=== PATIENT | female | born 1990 | race Caucasian/White ===

== ENCOUNTER 2017-06-28 17:03 | Emergency (ER) | payer OTHER ==
[2017-06-28] MEDS ORDERED: Ondansetron INJ* 2 MG/ML VIAL IV ONE (18:43)
[2017-06-28] MEDS ORDERED: Morphine INJ* 2 MG/ML 1 ML CARPUJECT IV ONE (18:43)
[2017-06-28] MEDS ORDERED: Morphine INJ* 4 MG/ML 1 ML SYRINGE (NEW SYRINGE VERSION) IV ONE (18:48)
--- NOTE | 2017-06-28 18:59 | ED ---
- HPI Summary HPI Summary: Patient here with miscarriage. She reports she had taken a home test after missing her period and this was positive. She followed up with OB/ [facility] who confirmed with an hCG serum study on MondayJune 19. She had a repeat hCG study on June 22 which revealed a declining quantitative value. She also had an ultrasound that revealed it was too early to identify is intrauterine or ectopic but she was told after a declining hCG on June 22 she was most likely miscarrying. She denies any pain or vaginal discharge until yesterday when she developed some mild cramping and spotting. She is here today she is having severe cramping (both pelvic and back), contractions and heavy bleeding with clots. She also reports subjective fevers and chills. She reports her pain is 8 out of 10 at rest and feels like someone is stabbing her with a knife and repairing it through her pelvic region. Pain is 10 out of 10 when contractions,. Contractions have been further apart since arriving to the ED. She reports she had been using oral control prior to and although she and her partner were not trying, she missed a few doses of her control rendering her area she denies any previous issues with menstruation or bleeding/clotting disorders in herself or her family. She does report her mom miscarried her first as well. 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 - Allergies/Home Medications Allergies/Adverse Reactions: Allergies Allergy/AdvReac Type Severity Reaction Status Date / Time dog food dust, body wash Allergy Swelling Uncoded 01/30/16 14:48 Home Medications: Home Medications NK [No Home Medications Reported] 06/28/17 [History Confirmed 06/28/17] PMH/Surg Hx/FS Hx/Imm Hx Previously Healthy: Yes Endocrine/Hematology History: Denies: Hx Anticoagulant Therapy, Hx Blood Disorders, Hx Thyroid Disease, Hx Anemia, Hx Unexplained Bleeding, Hx Coagulopothy, Autoimmune Disease Respiratory History: Reports: Hx Asthma - Surgical History Surgery Procedure, Year, and Place: Tonsils Infectious Disease History: No Infectious Disease History: Denies: Traveled Outside the [place] in Last 30 Days - Family History Known Family History: Positive: Other - CA, cholescystectomy - Social History Occupation: Employed Full-time - [employer] Lives: With Family Alcohol Use: Occasionally - NOT DURING Hx Substance Use: No Substance Use Type: Reports: None Hx Tobacco Use: No - NOT CURRENTLY Smoking Status (MU): Former Smoker Review of Systems Positive: Fever, Chills. Negative: Fatigue Cardiovascular: Negative Respiratory: Negative Positive: Abdominal Pain. Negative: Vomiting, Diarrhea, Nausea Positive: see HPI Musculoskeletal: Negative Skin: Negative Neurological: Negative Positive: Anxious All Other Systems Reviewed And Are Negative: Yes Physical Exam - Physical Exam Triage Information Reviewed: Yes Vital Signs Reviewed: Yes Appearance: Positive: Well-Appearing, Well-Nourished, Pain Distress - MILD TO MODERATE Skin: Positive: Warm, Skin Color Reflects Adequate Perfusion, Dry Head/Face: Positive: Normal Head/Face Inspection Eyes: Positive: Normal, EOMI ENT: Positive: Hearing grossly normal, Pharynx normal - Mucosa moist Neck: Positive: Supple Respiratory/Lung Sounds: Positive: Breath Sounds Present Cardiovascular: Positive: Normal, RRR, S1, S2. Negative: Murmur, Rub Abdomen Description: Positive: No Organomegaly, Soft, Other: - generalized TTP over mid and lower ab - no rebounding Bowel Sounds: Positive: Present Musculoskeletal: Positive: Normal, Strength/ROM Intact Neurological: Positive: Normal, Sensory/Motor Intact, Alert, Oriented to Person Place, Time, CN Intact II-III Psychiatric: Positive: Normal Diagnostics - Vital Signs Vital Signs Temp Pulse Resp BP Pulse Ox 06/28/17 17:06 98.1 F 75 18 122/68 100 - Laboratory Result Diagrams: 06/28/17 19:00 06/28/17 19:00 Lab Statement: Any lab studies that have been ordered have been reviewed, and results considered in the medical decision making process. Course/Dx - Course Course Of Treatment: 8 week Patient presents with 2 day history of first pelvic cramping with spotting and today contractions with heavy bleeding, passing clots. She was seen earlier this week by [facility] who reported her hCG levels have been dropping. She also had an initial U/S which did not reveal ectopic but was too early to tell at that time. Repeat labs today indicate her hCG continues to drop and ultrasound is negative for ectopic at this time, report suggests failed IUP. Her temperature is within normal limits and she does not exhibit signs of septicemia - has not taken any meds prior to arrival. Her pain is well controlled here with IV morphine. Will discharge with further pain control and danger signs and symptoms of when to return the emergency Department - otherwise she'll follow- up with [facility]. - Diagnoses Provider Diagnoses: Miscarriage - Provider Notifications Discussed Care Of Patient With: Cale Yen Discharge - Sign-Out/Discharge Documenting (check all that apply): Discharge - Discharge Plan Condition: Stable Disposition: HOME Patient Education Materials: Miscarriage (ED) Forms: *Work Release Referrals: Shawna Louie NP [Primary Care Provider] - Additional Instructions: You appear to be having a miscarriage. It is advised that you rest, stay hydrated/nourished and implement pelvic rest which entails no tampons or sexual intercourse until cleared by [facility]. You may take Tylenol 650 mg every 6 hours as needed for pain however if your pain is not well controlled with Tylenol alone, you may alternate with Dolores -a pain medication with hydrocodone, and narcotic pain med, and Tylenol. Do not exceed 4 g of Tylenol in a 24-hour period. Avoid NSAIDs such as ibuprofen and naproxen. Follow-up with OBGYN in the next 1-2 days to update symptoms. If you develop fever or heavy vaginal bleeding, return to ED. NOTE: It is encouraged that you follow-up with OBGYN or PCP for grief counseling. Call tomorrow to schedule appointment. - Billing Disposition and Condition Condition: STABLE Disposition: HOME
[2017-06-28 19:14] LABS: ABS Basophils 0 10^3/ul (0-0.2); ABS Eosinophils 0 10^3/ul (0-0.6); ABS Lymphocytes 1.4 10^3/ul (1.0-4.8); ABS Monocytes 0.4 10^3/ul (0-0.8); ABS Neutrophils 12.8 10^3/ul (1.5-7.7); ABS Nucleated RBC 0 10^3/ul; Eosinophil % 0.3 % (0-6); Hematocrit 34 % (35-47); Hemoglobin 11.5 g/dl (12.0-16.0); Lymphocyte % 9.5 % (25-47); Mean Corpuscular HGB Conc 33 g/dl (31-36); Mean Corpuscular Hemoglobin 27 pg (27-31); Mean Corpuscular Volume 82 fL (80-97); Mean Platelet Volume 8.4 um3 (7.4-10.4); Nucleated Red Blood Cells % 0; Platelet Count 205 10^3/ul (150-450); Red Blood Count 4.19 10^6/ul (4.0-5.4); Red Cell Distribution Width 13 % (10.5-15); White Blood Count 14.7 10^3/ul (3.5-10.8)
[2017-06-28] MEDS ORDERED: Morphine INJ* 2 MG/ML 1 ML CARPUJECT ONE (19:18)
[2017-06-28 19:23] LABS: INR 0.93 (0.77-1.02)
[2017-06-28 19:36] LABS: EGFR Non-African American 110.2 (>60)
--- NOTE | 2017-06-28 20:02 | RAD ---
Indication: Approximate 8 weeks . Vaginal bleeding. Differential includes failed first trimester and ectopic . Comparison: No relevant prior exams available on the [facility] PACS for comparison. Technique: Transvaginal pelvic ultrasound. Report: 10.6 x 3.7 x 5.4 cm anteverted uterus. The uterus and cervix appear heterogeneous in echotexture. Mildly complex fluid within the endocervical canal. No intrauterine gestational sac visualized. Unremarkable 3.2 x 2.0 x 1.8 cm RIGHT ovary and 2.6 x 1.8 x 1.2 cm LEFT ovary with documented vascular flow and small follicles only. No suspicious ovarian or visualized extra ovarian adnexal region lesions evident. Only trace free pelvic fluid visualized. IMPRESSION: No suspicious adnexal region lesions or definitive IUP visualized. Given presence of complex fluid at the endocervical canal an in process failed intrauterine is most likely. As ectopic is not entirely excluded in absence of a visualized IUP close clinical, beta-HCG, and sonographic follow-up is suggested as deemed appropriate.
[2017-06-28] MEDS ORDERED: Acetaminophen TAB* 325 MG PO ONE (21:02)
[2017-06-28 21:07] VITALS: BP 102/66
[2017-06-28 21:22] LABS: Urine Appearance Clear; Urine Color Yellow; Urine Ketones Trace (Negative); Urine Protein Negative (Negative); Urine Specific Gravity 1.004 (1.010-1.030); Urine Urobilinogen Negative (Negative)
[2017-06-28 21:23] LABS: Urine Blood 3+ (Negative)
== END 2017-06-28 21:24 | disposition home or self-care (01) ==
LOC: ED 17:03
DX: O03.9 Complete or unspecified spontaneous abortion without complication (principal); R50.9 Fever, unspecified; J45.909 Unspecified asthma, uncomplicated; Z87.891 Personal history of nicotine dependence
CPT/HCPCS: 36415; 76801; 80053; 81003; 81015; 84702; 85025; 85610; 85730; 87086; 96374; 96375; 99283; A9270-GY; J2270; J2405

== ENCOUNTER 2019-06-07 12:03 | Emergency (ER) | payer OTHER ==
--- OUTSIDE RECORDS SUMMARY | 2019-06-07 12:13 | XMS REPORT | Continuity of Care Document ---
:1990 External Reference #:[id number] Author Name Shawna Louie N.P. 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 Onset: 05/23/2012 Social History Type Date Description Comments Sex Unknown ETOH Use Currently consumes Rare alcohol Tobacco Use Start: Unknown End: Patient is a former Unknown smoker Smoking Status Reviewed: 05/24/19 Patient is a former smoker Exercise Exercises regularly Exercises every other Type/Frequency day at [email or web address] Allergies, Adverse Reactions, Alerts Description No Known Drug Allergies Medications Active Medications SIG Qnty Indications Ordering Provider Date Omeprazole 1 by mouth every 30caps R10.84 Shawna Louie, 05/24/[address] Leonzolam take1 tablet 10tabs Semaj Carlisle NP 03/17/2017 0.5mg twice daily as Tablets needed, 1 hour before flying or for panic Peak Flow Meter check peak flow 1units 493.90 Rima Brown M.D. 06/12/2013 once weekly and Device as needed for symptom control Proair HFA inhale 1 to 2 8.5units 493.90 Shawna Louie, 05/23/2012 puffs every four N.P. 108(90Base) mcg/Act hours if needed Aerosol Medications Administered in Office Medication SIG Qnty Indications Ordering Provider Date PPD Injection Semaj Carlisle NP 07/02/2014 Immunizations CPT Code Status Date Vaccine Lot # [id number] Given 08/24/2015 Tetanus And Diptheria (Td) For Adult Use [id number] Preservative Free Vital Signs Date Vital Result Comment 05/24/2019 10:01am Height 65.25 inches 5'5.25" Weight 187.50 lb Heart Rate 75 /min BP Systolic Sitting 113 mmHg BP Diastolic Sitting 77 mmHg Body Temperature 97.7 F O2 % BldC Oximetry 99 % BMI (Body Mass Index) 31.0 kg/m2 02/20/2018 8:39am Height 65.25 inches 5'5.25" Weight 187.44 lb Heart Rate 88 /min BP Systolic 100 mmHg BP Diastolic 64 mmHg Body Temperature 98.4 F O2 % BldC Oximetry 98 % BMI (Body Mass Index) 30.9 kg/m2 Results Description No Information Available Procedures Description No Information Available Medical Devices Description No Information Available Encounters Type Date Location Provider Dx Diagnosis Office Visit 05/24/2019 [facility] Internal Shawna Louie, G43.909 Migraine, unsp , not 10:00a Medicine - [facility] N.P. intractable, without status migrainosus R10.84 Generalized abdominal pain Assessments Date Code Description Provider 05/24/2019 G43.909 Migraine, unspecified, not intractable, Shawna Louie, N.P. without status migrainosus 05/24/2019 R10.84 Generalized abdominal pain Shawna Louie N.P. Plan of Treatment Future Appointment(s):06/27/2019 9:40 am - Shawna Louie NEladio at [facility] Internal Medicine - [facility]05/24/2019 - Shawna Louie N.PMaríaG43.909 Migraine, unspecified, not intractable, without status migrainosusComments:For your migraine headaches : I advise you to start taking Magnesium 400 mg daily. For the nausea I prescribed Ondansetron 4 mg. You may take this as needed.Follow up:F/U 1 [id number] Generalized abdominal painNew Medication:Omeprazole 20 mg - 1 by mouth every dayComments:Your nausea and abdominal pain may be related to gastritis, an inflammation of your stomach. I have prescribed Omeprazole 20 mg. Take 1 tablet daily. Avoid spicy, greasy, and acidic foods. Coffee and alcohol are also irritants.I have ordered an abdominal ultrasound. The office will contact you with your results. Functional Status Description No Information Available Mental Status Description No Information Available Referrals Description No Information Available
--- OUTSIDE RECORDS SUMMARY | 2019-06-07 12:13 | XMS REPORT | Continuity of Care Document ---
:1990 External Reference #:[id number] Author Name Shawna Louie N.P. 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 Onset: 05/23/2012 Social History Type Date Description Comments Sex Unknown ETOH Use Currently consumes Rare alcohol Tobacco Use Start: Unknown End: Patient is a former Unknown smoker Smoking Status Reviewed: 05/24/19 Patient is a former smoker Exercise Exercises regularly Exercises every other Type/Frequency day at [employer] Allergies, Adverse Reactions, Alerts Description No Known Drug Allergies Medications Active Medications SIG Qnty Indications Ordering Provider Date Omeprazole 1 by mouth every 30caps R10.84 Shawna Louie, 05/24/2019 [address]P. Capsules DR Alarcon take1 tablet 10tabs Semaj Carlisle NP 03/17/2017 [...] CPT Code Status Date Vaccine Lot # [id number] Given 08/24/2015 Tetanus And Diptheria (Td) For [...] Medical Devices Description No Information Available Encounters Description No Information Available Assessments Date Code Description Provider 05/24/2019 G43.909 Migraine, unspecified, not intractable, Shawna Louie, N.P. without status migrainosus 05/24/2019 R10.84 Generalized abdominal pain Shawna Louie, N.PMaría Plan of Treatment 05/24/2019 - Shawna Louie, N.P.G43.909 Migraine, unspecified, not intractable, without status migrainosusComments:For your migraine headaches: I advise you to start taking Magnesium 400 mg daily. For the nausea I prescribed Ondansetron 4 mg. You may take this as needed.Follow up:F/U 1 [id number] Generalized abdominal painNew Medication:Omeprazole 20 mg - 1 by mouth every dayNew Xrays: US Abdomen Complete, Ordered: 05/24/19Comments:Your nausea and abdominal pain may be related [...]
[2019-06-07 12:36] VITALS: BP 124/70
--- NOTE | 2019-06-07 13:48 | UC ---
Skin Complaint HPI - HPI Summary HPI Summary: 28-year-old female presents with complaints of a pruritic rash. States started yesterday to her posterior scalp and then this morning she woke up with the rash to her upper back, abdomen, and bilateral upper legs. Reports started omeprazole one and a half weeks ago. Only other change has been a new brand of water softener. No changes to diet, soaps, detergents, lotions, cosmetics, or known contact with environmental irritants. Denies swelling of the lips, tongue , throat, or difficulty breathing. - History of Current Complaint Chief Complaint: UCGeneralIllness Time Seen by Provider: 06/07/19 13:43 Stated Complaint: ITCHY RASH HIVES EARS ITCH/BURN Hx Obtained From: Patient Hx Last Menstrual Period: end april Pain Intensity: 0 - Allergy/Home Medications Allergies/Adverse Reactions: Allergies Allergy/AdvReac Type Severity Reaction Status Date / Time dog food dust, body wash Allergy Swelling Uncoded 06/07/19 12:36 Home Medications: Home Medications predniSONE 20 mg TAB [Deltasone 20 MG TAB*] 20 mg PO DAILY #3 tab 06/07/19 [Rx] PMH/Surg Hx/FS Hx/Imm Hx Previously Healthy: Yes - Denies significant PMH Other History Of: Negative For: Anticoagulant Therapy - Surgical History Surgical History: Yes Surgery Procedure, Year, and Place: Tonsils - Family History Known Family History: Positive: Other - CA, gall bladder disease - Social History Alcohol Use: Occasionally Substance Use Type: None Smoking Status (MU): Former Smoker Review of Systems All Other Systems Reviewed And Are Negative: Yes Constitutional: Positive: Negative Skin: Positive: Rash Eyes: Negative: Drainage, Eye Redness ENT: Negative: Sore Throat, Ear Ache, Nasal Discharge, Sinus Congestion, Sinus Pain/Tenderness, Other - Swelling of lips, tongue, throat Respiratory: Negative: Shortness Of Breath, Other - Difficulty breathing Cardiovascular: Positive: Negative Gastrointestinal: Positive: Negative Genitourinary: Positive: Negative Motor: Positive: Negative Musculoskeletal: Positive: Negative Neurological/Mental Status: Positive: Negative Is Patient Immunocompromised?: No Physical Exam - Summary Physical Exam Summary: GENERAL APPEARANCE: Well developed, well nourished, alert and cooperative, and appears to be in no acute distress. MOUTH/THROAT: No swelling of the lips, tongue, or throat. Pharynx normal. Tonsils surgically absent. Uvula midline. Oral cavity normal. Airway patent. NECK: Neck supple, non-tender without lymphadenopathy. CARDIAC: Normal S1 and S2. No S3, S4 or murmurs. Rhythm is regular. There is no peripheral edema, cyanosis or pallor. Extremities are warm and well perfused. Capillary refill is less than 2 seconds. Peripheral pulses intact. LUNGS: Clear to auscultation without rales, rhonchi, wheezing or diminished breath sounds. ABDOMEN: Positive bowel sounds. Soft, nondistended, nontender. No guarding or rebound. No masses or hepatosplenomegally. MUSKULOSKELETAL: ROM intact to all extremities. No joint erythema or tenderness. Normal muscular development. Normal gait. SKIN: Skin normal color, texture and turgor. Maculopapular erythematous rash to the posterior scalp, posterior neck, upper back, anterior abdomen, and bilateral anterior lower legs. Triage Information Reviewed: Yes Vital Signs: Initial Vital Signs Temp 98 F 06/07/19 12:34 Pulse 74 06/07/19 12:34 Resp 16 06/07/19 12:34 BP 124/70 06/07/19 12:34 Pulse Ox 100 06/07/19 12:34 Vital Signs Reviewed: Yes Course/Dx - Course Course Of Treatment: 28-year-old female presents with complaints of a pruritic rash. States started yesterday to her posterior scalp and then this morning she woke up with the rash to her upper back, abdomen, and bilateral upper legs. Reports started omeprazole one and a half weeks ago. Only other change has been a new brand of water softener. No changes to diet, soaps, detergents, lotions, cosmetics, or known contact with environmental irritants. Denies swelling of the lips, tongue , throat, or difficulty breathing. Afebrile. Vital signs stable. Patient had no swelling of the lips, tongue, throat, patent airway, no difficulty breathing , clear bilateral breath sounds, a maculopapular erythematous rash to the posterior scalp, posterior neck, upper back, anterior abdomen, and bilateral anterior lower legs, and otherwise unremarkable exam. Discussed with the patient that her symptoms are consistent with a dermatitis of unknown origin although with her starting omeprazole recently razor high degree suspicious that this may be a drug reaction and have instructed the patient to discontinue at this time. We'll start her on prednisone 20 mg PO daily 3 days and have her use an [id number] antihistamine for itching. She is to follow-up with her primary care provider in 3 days if there is no improvement in symptoms. Anticipatory guidance and warning symptoms were reviewed with the patient. Verbalizes understanding and agrees with plan of care. - Differential Diagnoses - Skin Complaint Differential Diagnoses: Allergic Reaction, Anaphylaxis, Contact Dermatitis, Drug Rash, Local Allergic Reaction, Shukla-Harry Syndrome, Urticaria - Diagnoses Provider Diagnosis: Dermatitis Discharge ED - Sign-Out/Discharge Documenting (check all that apply): Patient Departure All imaging exams completed and their final reports reviewed: No Studies - Discharge Plan Condition: Stable Disposition: HOME Prescriptions: predniSONE 20 mg TAB [Deltasone 20 MG TAB*] 20 mg PO DAILY #3 tab Patient Education Materials: Dermatitis (ED) Referrals: Shawna Louie NP [Primary Care Provider] - 3 Days Additional Instructions: Your rash appears to be a dermatitis of unknown origin although I suspect it may be a reaction to the omeprazole which you recently started. Stop taking the omeprazole immediately. Contact her primary care provider and let them know that we are concerned for a possible drug reaction and discuss with them if there is an alternative medication they would like you to start. Take prednisone 20 mg daily for 3 days to help with the rash and itching. Using [id number] nondrowsy antihistamine such as Zyrtec, Aurea, or Claritin twice daily for the itching. You may use the generic forms of these medications. You may also use diphenhydramine (Benadryl) according to directions but be aware that this medication may cause drowsiness and he may want to use this only at night. Follow-up with your primary care provider in 3 days especially if symptoms are not improving. Seek immediate medical attention in the emergency room if you develop swelling of the lips, tongue, throat, difficulty breathing, or any worsening of symptoms. - Billing Disposition and Condition Condition: STABLE Disposition: Home
== END 2019-06-07 16:29 | disposition home or self-care (01) ==
LOC: UCEAST 12:03
DX: L30.9 Dermatitis, unspecified (principal); Z91.048 Other nonmedicinal substance allergy status; Z87.891 Personal history of nicotine dependence
CPT/HCPCS: 84702; 99211; G0463

== ENCOUNTER 2020-02-08 10:53 | Inpatient (IN) ==
[2020-02-08] MEDS ORDERED: Lactated Ringers 1000 ml BAG 1,000 ML IV ONE ×2 (12:31→18:26)
[2020-02-08] MEDS ORDERED: Buffered Lidocaine 1% SYRIN 1 ml INTRADERM ONE (12:31)
[2020-02-08] MEDS ORDERED: Oxytocin in LR 20 UNITS/1,000 ML BAG IVPB SCH (13:00)
[2020-02-08] MEDS ORDERED: Lactated Ringers 1000 ml BAG 1,000 ML IV SCH ×2 (13:00→19:00)
[2020-02-08 14:17] LABS: ABS Eosinophils 0.1 10^3/ul (0-0.6); ABS Lymphocytes 1.9 10^3/ul (1.0-4.8); ABS Monocytes 0.7 10^3/ul (0-0.8); ABS Neutrophils 10.9 10^3/ul (1.5-7.7); Hematocrit 33 % (35-47); Hemoglobin 10.7 g/dL (12.0-16.0); Lymphocyte % 14.2 %; Mean Corpuscular HGB Conc 33 g/dL (31-36); Mean Corpuscular Hemoglobin 26 pg (27-31); Mean Corpuscular Volume 81 fL (80-97); Mean Platelet Volume 10.1 fL (7.4-10.4); Platelet Count 156 10^3/uL (150-450); Red Blood Count 4.03 10^6 /uL (3.70-4.87); Red Cell Distribution Width 15 % (10-15); White Blood Count 13.7 10^3/uL (3.5-10.8)
[2020-02-08] MEDS ORDERED: fentaNYL 100 mcg/2 ml 50 MCG/ML VIAL ONE (16:17)
[2020-02-08] MEDS ORDERED: OBEPIDURAL 250 ML EPIDURAL ONE (16:17)
[2020-02-08] MEDS ORDERED: Calcium Carb (TUMS) 500 mg CHEW TAB PO PRN (17:51)
[2020-02-08 18:26] LABS: Urine Benzodiazepine Screen None Detected (None Detect); Urine Cannabinoids Screen None Detected (None Detect); Urine Opiates Screen None Detected (None Detect)
[2020-02-08] MEDS ORDERED: Phenylephrine 40 mcg/mL 10mL (400mcg) SYRINGE IV PUSH PRN (18:26)
[2020-02-08] MEDS ORDERED: EPHEDrine (Pressors) 50 MG/ML VIAL IV PUSH PRN (18:26)
[2020-02-08] MEDS ORDERED: Sodium Citrate/Citric Acid LIQ 15 ML UDC PO PRN (18:26)
[2020-02-08] MEDS ORDERED: OBEPIDURAL 250 ML EPIDURAL SCH (19:00)
[2020-02-09] MEDS ORDERED: Witch Hazel PAD JAR TOPICAL PRN (00:51)
[2020-02-09] MEDS ORDERED: Dibucaine 1% OINT 28.35 GM TUBE PR PRN (00:51)
[2020-02-09] MEDS ORDERED: Methylergonovine 0.2 mg AMPULE 1 ml AMP IM ONE (00:52)
[2020-02-09] MEDS ORDERED: Oxytocin in LR 20 UNITS/1,000 ML BAG IVPB SCH (01:00)
[2020-02-09] MEDS ORDERED: Lactated Ringers 1000 ml BAG 1,000 ML IV SCH (01:00)
[2020-02-09] MEDS ORDERED: RHO D Immune Globulin (HUMAN) 300 MCG = 1,500 I.U. INJ IM ONE ×2 (01:01→17:44)
[2020-02-09 06:13] LABS: ABS Lymphocytes 0.9 10^3/ul (1.0-4.8); ABS Monocytes 0.8 10^3/ul (0-0.8); Hematocrit 26 % (35-47); Hemoglobin 8.5 g/dL (12.0-16.0); Lymphocyte % 4.7 %; Mean Corpuscular HGB Conc 33 g/dL (31-36); Mean Corpuscular Hemoglobin 27 pg (27-31); Mean Corpuscular Volume 80 fL (80-97); Mean Platelet Volume 9.9 fL (7.4-10.4); Platelet Count 125 10^3/uL (150-450); Red Blood Count 3.19 10^6 /uL (3.70-4.87); Red Cell Distribution Width 15 % (10-15); White Blood Count 18.8 10^3/uL (3.5-10.8)
[2020-02-09] MEDS ORDERED: Lidocaine 1% MPF 5 ML VIAL ONE (10:07)
[2020-02-10 07:26] VITALS: BP 106/69
[2020-02-10] MEDS ORDERED: Witch Hazel PAD JAR ONE (09:05)
[2020-02-10] MEDS ORDERED: Lidocaine 2% JELLY 6 ML TOPICAL PRN (14:23)
== END 2020-02-10 16:25 | disposition home or self-care (01) | DRG 806 ==
LOC: MCHOBOUT 10:53 → MCHOB 12:08
PROVIDERS: ADMIT Obstetrics & Gynecology; ATTEND Midwife

== ENCOUNTER 2020-04-02 20:52 | Observation (INO) ==
[2020-04-02 22:00] LABS: ABS Eosinophils 0.2 10^3/ul (0-0.6); ABS Lymphocytes 2.2 10^3/ul (1.0-4.8); ABS Monocytes 0.5 10^3/ul (0-0.8); ABS Neutrophils 5.9 10^3/ul (1.5-7.7); Eosinophil % 1.9 %; Hematocrit 30 % (35-47); Hemoglobin 9.7 g/dL (12.0-16.0); Mean Corpuscular HGB Conc 32 g/dL (31-36); Mean Corpuscular Hemoglobin 24 pg (27-31); Mean Corpuscular Volume 75 fL (80-97); Mean Platelet Volume 8.3 fL (7.4-10.4); Platelet Count 221 10^3/uL (150-450); Red Blood Count 4.02 10^6 /uL (3.70-4.87); Red Cell Distribution Width 15 % (10-15); White Blood Count 8.8 10^3/uL (3.5-10.8)
[2020-04-02 22:01] LABS: Urine Appearance Cloudy; Urine Bilirubin Negative (Negative); Urine Blood 2+ (Negative); Urine Color Yellow; Urine Glucose Negative (Negative); Urine Ketones Negative (Negative); Urine Nitrite Negative (Negative); Urine Protein Negative (Negative); Urine Specific Gravity 1.026 (1.010-1.030); Urine Urobilinogen Negative (Negative)
[2020-04-02 22:10] LABS: Urine Bacteria Absent (Absent); Urine Red Blood Cell 2+(6-10/hpf) (Absent); Urine Squamous Epithelial Cell Present (Absent); Urine White Blood Cell 2+(11-20/hpf) (Absent)
[2020-04-02 22:19] LABS: ALT 20 U/L (7-52); AST 17 U/L (13-39); Albumin 3.9 g/dL (3.2-5.2); Albumin/Globulin Ratio 1.3 (1-3); Alkaline Phosphatase 82 U/L (34-104); Anion Gap 7 mmol/L (2-11); BUN/Creatinine Ratio 17.9 (8-20); Blood Urea Nitrogen 15 mg/dL (6-24); C Reactive Protein 49.28 mg/L (<8.01); CO2 Carbon Dioxide 26 mmol/L (22-32); Calcium 8.4 mg/dL (8.6-10.3); Chloride 105 mmol/L (101-111); EGFR Non-African American 80.2 (>60); Glucose 100 mg/dL (70-100); Lipase 26 U/L (11.0-82.0); Potassium 3.6 mmol/L (3.5-5.0); Sodium 138 mmol/L (135-145); Total Protein 6.9 g/dL (6.4-8.9)
[2020-04-02 22:26] LABS: HCG Pregnancy < 0.60 mIU/mL
[2020-04-02] MEDS ORDERED: NS 0.9% 1000 ml BAG 1,000 ML IV ONE (23:02)
[2020-04-03] MEDS ORDERED: Iohexol 300 (CONTRAST) 10 ML SDV IV ONE (00:53)
[2020-04-03] MEDS ORDERED: Piperacillin/Tazobac ADVAN 3.375 GM in NS 0.9% 100 ml BAG 100 ML IV ONE (01:53)
[2020-04-03] MEDS: LACTATED RINGERS 1000 ML BAG IV SCH ×2 (06:47→09:47)
[2020-04-03] MEDS ORDERED: Bupivacaine 0.25% SDV 30 ML ONE (09:51)
[2020-04-03] MEDS ORDERED: HYDROmorphone 1 MG/1 ML SYRINGE IV PRN (09:55)
[2020-04-03] MEDS ORDERED: oxyCODONE/Acetamin 5/325 mg TAB PO PRN (09:55)
[2020-04-03] MEDS ORDERED: Ondansetron 4 mg VIAL 2 MG/ML 2 ml VIAL IV PRN (09:55)
[2020-04-03] MEDS ORDERED: DiMENhydriNATE IV 50 mg/ml 1 ml VIAL IV PUSH PRN (09:55)
[2020-04-03] MEDS ORDERED: Naloxone 0.4 mg VIAL 0.4 mg/ml 1 ml VIAL IV PRN (09:55)
[2020-04-03] MEDS ORDERED: fentaNYL 100 mcg/2 ml 50 MCG/ML VIAL ONE ×3 (10:23→13:20)
[2020-04-03] MEDS ORDERED: Lidocaine 2% PF 5 ML VIAL ONE (10:24)
[2020-04-03] MEDS ORDERED: Rocuronium 50 mg VIAL 10 mg/ml 5 ml VIAL (50 mg) ONE (10:24)
[2020-04-03] MEDS ORDERED: Propofol 10 MG/ML 20 ML BTL ONE (10:24)
[2020-04-03] MEDS ORDERED: Ondansetron 4 mg VIAL 2 MG/ML 2 ml VIAL ONE (11:57)
[2020-04-03] MEDS: fentaNYL 100 mcg/2 ml 50 MCG/ML VIAL IV PRN ×4 (11:57→13:56)
[2020-04-03] MEDS ORDERED: oxyCODONE/Acetamin 5/325 mg TAB ONE (13:29)
[2020-04-03 14:47] VITALS: BP 105/68
[2020-04-06] MEDS ORDERED: Scopolamine PATCH Remove NOTE PATCH OFF ONE (09:56)
== END 2020-04-03 15:37 | disposition home or self-care (01) ==
LOC: ED 20:52 → SSU 20:52
PROVIDERS: ADMIT Surgery; ATTEND Surgery Surgical Critical Care

== ENCOUNTER 2023-06-08 05:34 | Inpatient (IN) ==
[2023-06-08] MEDS ORDERED: Buffered Lidocaine 1% SYRIN 1 ml INTRADERM ONE (05:40)
[2023-06-08] MEDS: Lactated Ringers 1000 ml BAG 1,000 ML IV ONE (05:57)
[2023-06-08 06:26] LABS: ABS Eosinophils 0.2 10^3/uL (0.0-0.5); ABS Lymphocytes 1.2 10^3/uL (1.0-4.8); ABS Monocytes 0.4 10^3/uL (0.0-0.9); ABS Neutrophils 6.9 10^3/uL (1.5-7.6); Eosinophil % 2.1 %; Hemoglobin 9.7 g/dL (11.5-14.3); Lymphocyte % 13.8 %; Mean Corpuscular Hemoglobin 25.9 pg (27-33); Mean Corpuscular Hgb Conc 33.3 g/dL (31-36); Mean Corpuscular Volume 77.8 fL (80-97); Mean Platelet Volume 9.9 fL (7.5-11.2); Platelet Count 141 10^3/uL (150-450); Red Blood Count 3.73 10^6/uL (3.63-4.92); Red Cell Distribution Width 15.3 % (12-17); White Blood Count 8.8 10^3/uL (3.8-11.8)
[2023-06-08] MEDS ORDERED: Morphine PF AMP (0.5MG/ML) 5 MG/10 ML AMP ONE (07:17)
[2023-06-08] MEDS ORDERED: fentaNYL 100 mcg/2 ml 50 MCG/ML VIAL ONE (07:17)
[2023-06-08] MEDS ORDERED: Ondansetron 4 mg VIAL 2 MG/ML 2 ml VIAL ONE (08:10)
[2023-06-08] MEDS ORDERED: Dexamethasone IV 4 MG/ML VIAL 1 ml VIAL ONE (08:10)
[2023-06-08] MEDS ORDERED: Bupivacaine-MPF SPINAL 7.5 MG/ML - 2ML AMP ONE (08:11)
[2023-06-08] MEDS: Sodium Citrate/Citric Acid LIQ 15 ML UDC PO ONE (08:11)
[2023-06-08] MEDS: Lactated Ringers 1000 ml BAG 1,000 ML IV SCH (08:12)
[2023-06-08] MEDS: ceFAZolin 2 GM PREMIX 2 GM/50 ML BAG IV ONE (08:36)
[2023-06-08] MEDS ORDERED: Phenylephrine 40 mcg/mL 10mL (400mcg) SYRINGE ONE (08:46)
[2023-06-08] MEDS ORDERED: Oxytocin 10 UNITS/ML 1 ML VIAL ONE ×2 (08:46→09:13)
[2023-06-08] MEDS ORDERED: KETAMINE HCL 10 MG/ML 20 ml VIAL (200 MG) ONE (08:53)
[2023-06-08] MEDS ORDERED: Propofol 10 MG/ML 20 ML BTL ONE (08:54)
[2023-06-08] MEDS ORDERED: Acetaminophen IV 1 GM/100ML 1,000 MG/100 ML BAG IV ONE (08:57)
[2023-06-08] MEDS ORDERED: Phenylephrine IV 10 MG/ML 1 ml VIAL ONE (08:57)
[2023-06-08] MEDS ORDERED: Metoclopramide 5 MG/ML VIAL (10 mg) IV PRN (09:20)
[2023-06-08] MEDS ORDERED: Acetaminophen IV 1 GM/100ML 1,000 MG/100 ML BAG IV PRN (09:20)
[2023-06-08] MEDS ORDERED: Naloxone 0.4 mg VIAL 0.4 mg/ml 1 ml VIAL IV PUSH PRN (09:20)
[2023-06-08] MEDS ORDERED: Ondansetron 4 mg VIAL 2 MG/ML 2 ml VIAL IV PRN (09:20)
[2023-06-08] MEDS ORDERED: Glycerin ADULT 2.4 gm SUPP PR PRN (09:34)
[2023-06-08] MEDS ORDERED: Dibucaine 1% OINT 28.35 GM TUBE PR PRN (09:34)
[2023-06-08] MEDS ORDERED: Witch Hazel PAD JAR TOPICAL PRN (09:34)
[2023-06-08 09:35] LABS: Urine Appearance Clear; Urine Bilirubin Negative (Negative); Urine Blood Negative (Negative); Urine Color Colorless; Urine Glucose Negative (Negative); Urine Ketones Negative (Negative); Urine Nitrite Negative (Negative); Urine Protein Negative (Negative); Urine Specific Gravity 1.004 (1.002-1.030); Urine Urobilinogen Negative (Negative)
[2023-06-08] MEDS ORDERED: Lactated Ringers 1000 ml BAG 1,000 ML IV SCH (10:00)
[2023-06-08 10:04] LABS: Urine Benzodiazepine Screen None Detected (None Detect); Urine Cannabinoids Screen None Detected (None Detect); Urine Opiates Screen None Detected (None Detect)
[2023-06-08] MEDS: Oxytocin in LR 20,000 MILLI.UNIT/1,000 ML BAG IV SCH (12:39)
[2023-06-09 07:04] LABS: ABS Eosinophils 0.1 10^3/uL (0.0-0.5); ABS Lymphocytes 1.5 10^3/uL (1.0-4.8); ABS Monocytes 0.5 10^3/uL (0.0-0.9); ABS Neutrophils 8.6 10^3/uL (1.5-7.6); ABS Nucleated RBC 0.01 10^3/ul; Eosinophil % 0.8 %; Hematocrit 21.1 % (35-45); Lymphocyte % 13.8 %; Mean Corpuscular Hemoglobin 26.2 pg (27-33); Mean Corpuscular Hgb Conc 33.3 g/dL (31-36); Mean Corpuscular Volume 78.5 fL (80-97); Platelet Count 140 10^3/uL (150-450); Red Blood Count 2.69 10^6/uL (3.63-4.92); Red Cell Distribution Width 15.3 % (12-17); White Blood Count 10.7 10^3/uL (3.8-11.8)
[2023-06-09] MEDS: Iron Sucrose 200 MG in NS 0.9% 100 ml BAG 100 ML IVPB ONE (10:52)
[2023-06-09] MEDS: RHO D Immune Globulin (HUMAN) 300 MCG = 1,500 I.U. INJ IM ONE (18:49)
[2023-06-10] MEDS: Iron Sucrose 200 MG in NS 0.9% 100 ml BAG 100 ML IVPB ONE (15:17)
[2023-06-11 11:57] VITALS: BP 115/65
== END 2023-06-11 12:00 | disposition home or self-care (01) | DRG 540 ==
LOC: MCHOB 05:34
PROVIDERS: ADMIT Obstetrics & Gynecology; ATTEND Obstetrics & Gynecology